=== PATIENT | female | born 1970 | race Caucasian/White ===

== ENCOUNTER 2019-02-13 11:04 | Emergency (ER) | payer SELFPAY ==
[~2019-02-13] VITALS: Ht 170.1 cm; Wt 90.7 kg
[2019-02-13 11:56] LABS: BASO % 0.2 % (0.0-1.0); LYMPH # 1.4 10*3/uL (1.3-4.4); LYMPH % 10.1 % (27.0-41.0); MEAN CELL VOLUME 84.6 fl (81.0-99.0); MEAN CORPUSCULAR HGB 26.7 pg (27.0-31.0); MEAN CORPUSCULAR HGB CONC 31.6 g/dl (33.0-37.0); MEAN PLATELET VOLUME 10.1 fl (9.6-12.3); MONO # 0.6 10*3/uL (0.1-1.0); NEUT # 11.7 10*3/uL (2.3-7.9); NEUT % 85.3 % (47.0-73.0); PLATELET COUNT AUTOMATED 319 10*3/uL (130-400); RED BLOOD COUNT 4.49 10*6/uL (4.10-5.10); RED CELL DISTRI WIDTH 15.9 % (0-14.5); WHITE BLOOD COUNT 13.7 10*3/uL (4.8-10.8)
[2019-02-13 12:06] LABS: ACT PARTIAL THROMBO TIME 31.6 SECONDS (20.0-32.1)
[2019-02-13 12:13] LABS: ALBUMIN 3.1 gm/dl (3.1-4.5); ALKALINE PHOSPHATASE 65 U/L (45-117); BUN 8 mg/dl (7-24); CHLORIDE 109 mmol/L (98-107); CREATININE 0.82 mg/dL (0.55-1.02); POTASSIUM 3.7 mmol/L (3.5-5.1); SGOT/AST 12 IU/L (3-35); SGPT/ALT 16 U/L (12-78); SODIUM 140 mmol/L (136-145); TOTAL PROTEIN 7.2 gm/dL (6.4-8.2)
[2019-02-13 12:16] LABS: BETA-HCG, QUANT < 1.0 mIU/mL (1-3); TROPONIN I < 0.015 ng/ml (<0.045)
[2019-02-13 14:44] VITALS: BP 133/84
[2019-02-13] MEDS ORDERED: LEVAQUIN750 M1 PO (15:01)
== END 2019-02-13 15:17 | disposition home or self-care (01) ==
LOC: ED 11:04
PROVIDERS: Family Medicine
DX: J18.9 Pneumonia, unspecified organism (principal); Z91.040 Latex allergy status

== ENCOUNTER 2019-02-20 09:03 | Emergency (ER) | payer BC ==
[~2019-02-20] VITALS: Ht 170.1 cm; Wt 90.7 kg
[~2019-02-20 09:03] MED LIST: LEVAQUIN750 M1 PO
[2019-02-20 09:05] VITALS: BP 126/65
== END 2019-02-20 12:03 | disposition home or self-care (01) ==
LOC: ED 09:03
DX: J18.9 Pneumonia, unspecified organism (principal); G89.29 Other chronic pain; Z79.2 Long term (current) use of antibiotics

== ENCOUNTER 2019-04-19 13:52 | Emergency (ER) | payer OTHER ==
[~2019-04-19] VITALS: Ht 170.1 cm; Wt 90.7 kg
[2019-04-19 14:11] VITALS: BP 135/83
[2019-04-19] MEDS ORDERED: METHOCARBAMOL500 M1 PO (14:39)
[2019-04-19] MEDS ORDERED: NAPROSYN500 MG PO (14:39)
[2019-04-19] MEDS ORDERED: MEDROL DOSEPAK4 MG PO (14:39)
== END 2019-04-19 14:55 | disposition home or self-care (01) ==
LOC: ED 13:52
DX: S39.012A Strain of muscle, fascia and tendon of lower back, initial encounter (principal); Z79.899 Other long term (current) drug therapy; X58.XXXA Exposure to other specified factors, initial encounter; Y93.89 Activity, other specified; Y92.89 Other specified places as the place of occurrence of the external cause; Y99.8 Other external cause status

== ENCOUNTER 2019-05-12 09:09 | Emergency (ER) | payer OTHER ==
[~2019-05-12] VITALS: Ht 170.1 cm; Wt 90.7 kg
[~2019-05-12 09:09] MED LIST changes: +MEDROL DOSEPAK4 MG PO; +METHOCARBAMOL500 M1 PO; +NAPROSYN500 MG PO
[2019-05-12 09:13] VITALS: BP 118/74
== END 2019-05-12 10:22 | disposition home or self-care (01) ==
LOC: ED 09:09
DX: J98.11 Atelectasis (principal); Z88.8 Allergy status to other drugs, medicaments and biological substances; Z79.899 Other long term (current) drug therapy; Z79.2 Long term (current) use of antibiotics

== ENCOUNTER 2019-11-13 14:41 | Emergency (ER) | payer OTHER ==
[~2019-11-13] VITALS: Wt 81.6 kg
[2019-11-13 15:10] LABS: BASO % 0.4 % (0.0-1.0); HEMATOCRIT 33.5 % (37.0-47.0); LYMPH # 0.8 10*3/uL (1.3-4.4); LYMPH % 9.7 % (27.0-41.0); MEAN CELL VOLUME 75.5 fl (81.0-99.0); MEAN CORPUSCULAR HGB 22.5 pg (27.0-31.0); MEAN CORPUSCULAR HGB CONC 29.9 g/dl (33.0-37.0); MEAN PLATELET VOLUME 10.6 fl (9.6-12.3); MONO # 0.6 10*3/uL (0.1-1.0); MONO % 6.7 % (3.0-9.0); NEUT # 7.1 10*3/uL (2.3-7.9); PLATELET COUNT AUTOMATED 322 10*3/uL (130-400); RED BLOOD COUNT 4.44 10*6/uL (4.10-5.10); RED CELL DISTRI WIDTH 18.1 % (0-14.5); WHITE BLOOD COUNT 8.5 10*3/uL (4.8-10.8)
[2019-11-13 15:16] LABS: BILIRUBIN NEGATIVE; BLOOD NEGATIVE (NEGATIVE); CLARITY CLEAR (CLEAR); COLOR YELLOW (YELLOW); GLUCOSE NEGATIVE; KETONE NEGATIVE
[2019-11-13 15:17] LABS: LEUKO ESTERASE NEGATIVE (NEGATIVE); NITRITE NEGATIVE (NEGATIVE)
[2019-11-13 15:21] LABS: BACTERIA TRACE; RBC 0-2 rbc/hpf (0-2)
[2019-11-13 15:22] LABS: MUCOUS TRACE
[2019-11-13 15:26] LABS: ALBUMIN 3.4 gm/dl (3.1-4.5); ALKALINE PHOSPHATASE 71 U/L (45-117); BUN 10 mg/dl (7-24); CHLORIDE 106 mmol/L (98-107); CREATININE 0.79 mg/dL (0.55-1.02); LIPASE 1490 U/L (73-393); POTASSIUM 3.4 mmol/L (3.5-5.1); SGOT/AST 19 IU/L (3-35); SGPT/ALT 13 U/L (12-78); SODIUM 139 mmol/L (136-145); TOTAL PROTEIN 7.5 gm/dL (6.4-8.2)
[2019-11-13 17:32] VITALS: BP 144/79
== END 2019-11-13 19:15 | disposition home or self-care (01) ==
LOC: ED 14:41
PROVIDERS: Nurse Practitioner Family
DX: K85.90 Acute pancreatitis without necrosis or infection, unspecified (principal); R59.0 Localized enlarged lymph nodes; Z88.8 Allergy status to other drugs, medicaments and biological substances

== ENCOUNTER 2020-08-31 09:51 | Emergency (ER) | payer OTHER, BC ==
[~2020-08-31] VITALS: Ht 170.1 cm; Wt 86.2 kg
[2020-08-31 10:01] VITALS: BP 118/77
== END 2020-08-31 14:10 | disposition home or self-care (01) ==
LOC: ED 09:51
DX: S46.912A Strain of unspecified muscle, fascia and tendon at shoulder and upper arm level, left arm, initial encounter (principal); M54.2 Cervicalgia; R51.9 Headache, unspecified; Z88.8 Allergy status to other drugs, medicaments and biological substances; W22.8XXA Striking against or struck by other objects, initial encounter; Y93.02 Activity, running; Y92.89 Other specified places as the place of occurrence of the external cause; Y99.8 Other external cause status

== ENCOUNTER 2023-09-09 11:08 | Emergency (ER) | payer BC ==
[~2023-09-09] VITALS: Ht 170.1 cm; Wt 97.5 kg
[2023-09-09 11:35] VITALS: BP 146/96
[2023-09-09] MEDS ORDERED: VITAMIN B650 M1 PO (11:36)
[2023-09-09] MEDS ORDERED: PRILOSEC20 M1 PO (11:37)
[2023-09-09] MEDS ORDERED: VITAMIN B121000 MC3 PO (11:37)
[2023-09-09] MEDS ORDERED: LEXAPRO10 MG PO (11:37)
[2023-09-09] MEDS ORDERED: PREDNISONE20 M1 PO (11:46)
[2023-09-09] MEDS ORDERED: methylPREDNISolone sod succ 125 MG VIAL IM ONE (11:50)
== END 2023-09-09 12:00 | disposition home or self-care (01) ==
LOC: ED 11:08
DX: L50.9 Urticaria, unspecified (principal); Z88.8 Allergy status to other drugs, medicaments and biological substances; Z90.89 Acquired absence of other organs